=== PATIENT | female | born 2000 | race Caucasian/White ===

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

== ENCOUNTER 2020-02-10 09:17 | Outpatient (NON) | payer SELFPAY ==
[2020-02-11 21:18] LABS: SARS-CoV-2 RNA PCR Negative
== END 2020-02-10 09:18 ==
DX: Z20.828 Contact with and (suspected) exposure to other viral communicable diseases (principal)
CPT/HCPCS: 87635; C9803; U0003